=== PATIENT | female | born 1995 ===

== ENCOUNTER 2017-05-29 16:14 | Inpatient (IN) | payer OTHER ==
[2017-05-29 16:30] VITALS: BMI 33.5
[2017-05-29] MEDS ORDERED: Sodium Chloride 0.9% 1,000 ML IV ONE (18:31)
[2017-05-29] MEDS ORDERED: Sodium Chloride 0.9% 1,000 ML ONE (18:42)
[2017-05-29 18:55] LABS: BASO % 0.1 % (0.0-2.0); EOS # 0.1 K/uL (0.0-0.7); EOS % 0.5 % (0.0-4.0); HEMATOCRIT 43.6 % (34.0-47.0); LYMPH # 2.5 K/uL (1.0-4.3); LYMPH % 14.7 % (20.0-40.0); MEAN CELL VOLUME 87.2 fL (81.0-99.0); MEAN CORPUSCULAR HEMOGLOBIN 29.7 pg (27.0-31.0); MEAN PLATELET VOLUME 9.2 fL (7.2-11.7); MONO # 1.1 K/uL (0.0-0.8); MONO % 6.4 % (0.0-10.0); RED CELL DISTRIBUTION WIDTH 13.2 % (11.5-14.5); WHITE BLOOD COUNT 17.1 K/uL (4.8-10.8)
[2017-05-29 19:01] LABS: RBC URINE 22 /hpf (0-3); URINE BACTERIA RARE (<OCC); URINE BILIRUBIN NEGATIVE (NEGATIVE); URINE BLOOD 2+ (NEGATIVE); URINE COLOR Yellow (YELLOW); URINE GLUCOSE (UA) NORMAL (Normal); URINE KETONE NEGATIVE (NEGATIVE); URINE LEUKOCYTE ESTERASE NEG Leu/uL (Negative); URINE PROTEIN NEGATIVE (NEGATIVE); URINE UROBILINOGEN NORMAL mg/dL (0.2-1.0); WBC URINE 1 /hpf (0-5)
[2017-05-29 19:03] LABS: CHLORIDE 98 mmol/L (98-107)
[2017-05-29 19:04] LABS: POTASSIUM 3.9 mmol/L (3.6-5.2); SODIUM 140 mmol/L (132-148)
[2017-05-29 19:06] LABS: AST/SGOT 21 U/L (14-36); BILIRUBIN,TOTAL 0.9 mg/dL (0.2-1.3); CARBON DIOXIDE 27 mmol/L (22-30); GFR AFRICAN-AMERICAN > 60
[2017-05-29 19:07] LABS: ALB/GLOB RATIO 1.4 (1.0-2.1); ALKALINE PHOSPHATASE 77 U/L (38-126); ALT/SGPT 27 U/L (9-52); BLOOD UREA NITROGEN 14 mg/dL (7-17); CALCIUM 9.3 mg/dl (8.6-10.4); GLUCOSE,RANDOM 82 mg/dL (65-105); TOTAL PROTEIN 7.6 g/dL (6.3-8.3)
[2017-05-29] MEDS ORDERED: Iohexol 300 100 ML IJ ONE (20:05)
--- NOTE | 2017-05-29 20:13 | C.PDOC ---
History Of Present Illness 21 year old female presents to the emergency department with complaints right lower quadrant pain for one day. Patient states she has three bowel movements today and denies vaginal discharge, hematuria, or a history of renal colic. Time Seen by Provider: 05/29/17 18:08 Chief Complaint (Nursing): Abdominal Pain History Per: Patient History/Exam Limitations: no limitations Onset/Duration Of Symptoms: Days (1 day ) Current Symptoms Are (Timing): Still Present Radiation Of Pain To:: None Quality Of Discomfort: "Pain" Associated Symptoms: denies: Fever, Chills, Nausea, Vomiting, Diarrhea Last Bowel Movement: Today Recent travel outside of the [place]: No Abnormal Vaginal Bleeding: No Past Medical History Reviewed: Historical Data, Nursing Documentation, Vital Signs Vital Signs: Last Vital Signs Temp 98.3 F 05/29/17 21:59 Pulse 79 05/29/17 21:59 Resp 18 05/29/17 21:59 BP 119/77 05/29/17 21:59 Pulse Ox 99 05/29/17 22:02 Family History: States: Unknown Family Hx - Social History Hx Alcohol Use: No Hx Substance Use: No - Immunization History Hx Tetanus Toxoid Vaccination: No Hx Influenza Vaccination: No Hx Pneumococcal Vaccination: No Review Of Systems Constitutional: Negative for: Fever, Chills Cardiovascular: Negative for: Chest Pain Respiratory: Negative for: Shortness of Breath Gastrointestinal: Positive for: Abdominal Pain (right lower quadrant pain ). Negative for: Nausea, Vomiting, Diarrhea Genitourinary: Negative for: Vaginal Discharge, Vaginal Bleeding Physical Exam - Physical Exam Appears: Non-toxic, No Acute Distress Skin: Warm, Dry Head: Atraumatic Eye(s): bilateral: Normal Inspection, PERRL, EOMI Oral Mucosa: Moist Neck: Supple Chest: Symmetrical, No Deformity Cardiovascular: Rhythm Regular Respiratory: Normal Breath Sounds, No Rhonchi, No Wheezing Gastrointestinal/Abdominal: Soft, Tenderness (mild right abdominal tenderness ) , No Distention, No Guarding, No Rebound Extremity: Normal ROM, No Tenderness Neurological/Psych: Oriented x3 ED Course And Treatment - Laboratory Results Result Diagrams: 05/29/17 18:44 05/29/17 18:44 Lab Interpretation: Normal (few RBC's in urine) Urine POC: Negative O2 Sat by Pulse Oximetry: 99 (room air ) - CT Scan/US CT abd/pel Other Rad Studies (CT/US): Read By Radiologist, Radiology Report Reviewed CT/US Interpretation: IMPRESSION: - Findings suspicious for early acute appendicitis. There is no significant periappendiceal. inflammation, however. If the clinical presentation is equivocal, consider a short term followup. CT scan, in 6-12 hours, to reassess the appendix. - See above for remaining findings Reevaluation Time: 22:01 Reassessment Condition: Improved - Physician Consult Information Outcome Of Conversation: 2200: d/w Dr. 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 Disposition Doctor Will See Patient In The: Hospital Counseled Patient/Family Regarding: Studies Performed, Diagnosis - Disposition Disposition: HOSPITALIZED Disposition Time: 22:01 Condition: GOOD Forms: [facility] (Kittitian) - Clinical Impression Clinical Impression: Acute appendicitis - Scribe Statement The provider has reviewed the documentation as recorded by the Scribe Tracie Mckinley All medical record entries made by the Franibshannan were at my direction and personally dictated by me. I have reviewed the chart and agree that the record accurately reflects my personal performance of the history, physical exam, medical decision making, and the department course for this patient. I have also personally directed, reviewed, and agree with the discharge instructions and disposition.
--- NOTE | 2017-05-29 21:40 | CT ---
EXAM: CT Abdomen and Pelvis With Intravenous Contrast CLINICAL HISTORY: 21 years old, female; Pain; Abdominal pain; Flank; Right lower quadrant (rlq); Additional info: Rlq, ? ap TECHNIQUE: Axial computed tomography images of the abdomen and pelvis with intravenous contrast. This CT exam was performed using one or more of the following dose reduction techniques: automated exposure control, adjustment of the mA and/or kV according to patient size, and/or use of iterative reconstruction technique. Coronal and sagittal reformatted images were created and reviewed. CONTRAST: 100 mL of omnipaque 300 administered intravenously. EXAM DATE/TIME: 05/29/2017 7:15 PM COMPARISON: No relevant prior studies available. FINDINGS: LOWER THORAX: No infiltrate seen in the lung bases. ABDOMEN: LIVER: No acute abnormality of the liver identified. GALLBLADDER AND BILE DUCTS: No CT evidence of acute cholecystitis. No evidence of significant biliary ductal dilatation. PANCREAS: No CT evidence of acute pancreatitis. SPLEEN: No acute abnormality of the spleen identified. ADRENALS: No acute abnormality of the adrenal glands identified. KIDNEYS AND URETERS: No acute abnormality of the kidneys identified. No evidence of significant hydrouereteronephrosis. STOMACH AND BOWEL: No acute abnormality of the stomach, small bowel or colon identified. No evidence of bowel obstruction. APPENDIX: Appendix is seen, in a somewhat high location, in the right upper pelvis, extending inferiorly and medially from the cecum. It is fluid-filled. Its wall enhances. The proximal appendix is dilated, measuring up to 1 cm in diameter (normal less than 6 mm). There are no significant inflammatory changes in the periappendiceal fat. Findings are suspicious for early acute appendicitis. No nearby extraluminal air seen to suggest perforated appendicitis. No evidence of a significant focal fluid collection or abscess. PELVIS: BLADDER: No acute abnormality of the bladder identified. REPRODUCTIVE:No acute abnormality of the reproductive organs is seen. No acute abnormality of the uterus identified. No evidence of large adnexal masses. ABDOMEN and PELVIS: INTRAPERITONEAL SPACE: Tiny amount of free fluid in the cul-de-sac. No evidence of free air. BONES/JOINTS: No acute fractures or other acute bony abnormality noted. SOFT TISSUES: No acute abnormality of the visualized soft tissues is seen. VASCULATURE: No evidence of abdominal aortic aneurysm. No evidence of periaortic hemorrhage. LYMPH NODES: No evidence of diffuse lymphadenopathy. IMPRESSION: - Findings suspicious for early acute appendicitis. There is no significant periappendiceal inflammation, however. If the clinical presentation is equivocal, consider a short term followup CT scan, in 6-12 hours, to reassess the appendix. - See above for remaining findings.
[2017-05-29] MEDS ORDERED: Piperacillin/Tazobact 3.375 gm 100 ML IVPB STA (21:58)
[2017-05-29] MEDS ORDERED: Piperacillin/Tazobact 3.375 gm 100 ML IVPB ONE (22:11)
--- NOTE | 2017-05-29 22:57 | CP.PCM.PCO ---
Physician Communication Note - Physician Communication Note Physician Communication Note: NPO please for surgery at noon on Sat.
[2017-05-29] MEDS ORDERED: HYDROmorphone 0.5 mg/0.5 ml ISec IVP PRN (23:01)
[2017-05-30] MEDS: Sodium Chloride 0.9% 1,000 ML IV SCH ×4 (00:34→23:00)
[2017-05-30] MEDS: Piperacill/Tazo 3.375gm in Dex 3.375 GM/50 ML BAG IVPB SCH ×4 (06:27→22:11)
--- NOTE | 2017-05-30 07:16 | CP.PCM.HP ---
<Fidelina Segundo - Last Filed: 05/30/17 07:16> History of Present Illness - History of Present Illness History of Present Illness: Surgery for Dr. Mccall 21 yo female w who recently had 6 month ago came with RLQ side abd pain started yesterday. Pain is sudden gradually worsen. Pain is located RLQ doesn't radiate to back. Report nausea, vomiting x3 non bloody non bilious emedis, loss of appetite. No sick contact. Otherwise, denies fever, chills, recent illness, cough, CP, SOB, dyspnea, hematemesis, melena, back pain, dysuria ,hematuria, hematemesis, hematochezia. WBC is 17. CT shows early appendicitis , with dilated fluid filled appendix 1cm . Pt is going to OR. explained and pt understood. Signed consent. PSH: 6 month ago PMH: None Present on Admission - Present on Admission Any Indicators Present on Admission: No Review of Systems - Review of Systems Review of Systems: See HPI Past Patient History - Past Medical History & Family History Past Medical History?: No - Past Social History Smoking Status: Never Smoked - MUSCULOSKELETAL/RHEUMATOLOGICAL Hx Falls: No - PSYCHIATRIC Hx Substance Use: No - SURGICAL HISTORY Hx Section: Yes (x1) - ANESTHESIA Hx Anesthesia: Yes Meds Allergies/Adverse Reactions: Allergies Allergy/AdvReac Type Severity Reaction Status Date / Time No Known Allergies Allergy Verified 05/29/17 16:29 Physical Exam - Constitutional Appears: No Acute Distress - Head Exam Head Exam: ATRAUMATIC, NORMAL INSPECTION, NORMOCEPHALIC - Eye Exam Eye Exam: EOMI, Normal appearance, PERRL Pupil Exam: NORMAL ACCOMODATION, PERRL - ENT Exam ENT Exam: Mucous Membranes Moist, Normal Exam - Neck Exam Neck exam: Positive for: Normal Inspection - Respiratory Exam Respiratory Exam: Clear to Auscultation Bilateral, NORMAL BREATHING PATTERN - Cardiovascular Exam Cardiovascular Exam: REGULAR RHYTHM - GI/Abdominal Exam GI & Abdominal Exam: Normal Bowel Sounds, Soft, Tenderness. absent: Distended, Firm, Guarding Additional comments: RLQ TTP - Exam Exam: NORMAL INSPECTION - Extremities Exam Extremities exam: Positive for: normal inspection - Back Exam Back exam: NORMAL INSPECTION - Neurological Exam Neurological exam: Alert, CN II-XII Intact, Normal Gait, Oriented x3, Reflexes Normal - Psychiatric Exam Psychiatric exam: Normal Affect, Normal Mood - Skin Skin Exam: Dry, Intact, Normal Color, Warm Results - Vital Signs Recent Vital Signs: Last Vital Signs Temp 98.3 F 05/29/17 23:07 Pulse 71 05/29/17 23:07 Resp 20 05/29/17 23:07 BP 101/63 05/29/17 23:07 Pulse Ox 97 05/29/17 23:07 - Labs Result Diagrams: 05/29/17 18:44 05/29/17 18:44 Assessment & Plan - Assessment and Plan (Free Text) Assessment: Acute appendicitis wbc 17k Afebrile CT : early appendicitis . dilated appendix 1cm. -OR today -NPO -IVF -Nausea control -VS -ABX DW Dr. Mccall <Carlos Mccall - Last Filed: 05/30/17 22:12> Results - Vital Signs Recent Vital Signs: Last Vital Signs Temp 97.9 F 05/30/17 18:56 Pulse 82 05/30/17 18:56 Resp 20 05/30/17 18:56 BP 102/65 05/30/17 18:56 Pulse Ox 95 05/30/17 18:56 - Labs Result Diagrams: 05/30/17 10:56 05/29/17 18:44 Labs: Laboratory Results - last 24 hr 05/30/17 05/30/17 05/30/17 07:53 10:56 10:56 WBC 9.1 RBC 4.48 Hgb 13.3 Hct 39.4 MCV 87.9 MCH 29.6 MCHC 33.7 RDW 13.1 Plt Count 170 MPV 9.2 PT 13.6 H INR 1.2 APTT 30 Urine HCG, Qual Negative Attending/Attestation - Attestation I have personally seen and examined this patient.: Yes I have fully participated in the care of the patient.: Yes I have reviewed all pertinent clinical information: Yes Notes (Text): 05/30/17 22:12 Pt was seen and examined at bedside on 05/30/17 Agree with above note and assessment Pt with Acute Appendicitis OR for Lap Appendectomy possible Open Consent NPO, IVF C.w IV antibiotics Plan d.w pt in detail Risk and benefit explained in detail
[2017-05-30] MEDS ORDERED: Lidocaine 1% w Epi 1:100,000 Inj ONE (10:06)
[2017-05-30] MEDS ORDERED: Bupivacaine HCl 0.25% PF (10 ml) Inj ONE ×2 (10:06→15:09)
--- NOTE | 2017-05-30 10:25 | RAD ---
PROCEDURE: Radiographs of the chest and abdomen (obstructive series) HISTORY: Abdominal pain COMPARISON: No prior. TECHNIQUE: AP radiograph of the chest, with upright and supine radiographs of the abdomen. FINDINGS: CHEST: Lungs: Clear. Cardiovascular: Normal size heart. No pulmonary vascular congestion. Pleura: No pleural fluid. No pneumothorax. Other findings: None. ABDOMEN AND PELVIS: Bowel: The bowel gas pattern is nonspecific. No evidence of mechanical obstruction. Free air: None. Bones: Unremarkable. Other findings: None. IMPRESSION: Clear lungs. Nonobstructive bowel-gas pattern.
[2017-05-30 11:01] LABS: HEMATOCRIT 39.4 % (34.0-47.0); MEAN CELL VOLUME 87.9 fL (81.0-99.0); MEAN CORPUSCULAR HEMOGLOBIN 29.6 pg (27.0-31.0); MEAN CORPUSCULAR HGB CONC 33.7 g/dL (33.0-37.0); MEAN PLATELET VOLUME 9.2 fL (7.2-11.7); RED CELL DISTRIBUTION WIDTH 13.1 % (11.5-14.5); WHITE BLOOD COUNT 9.1 K/uL (4.8-10.8)
[2017-05-30 11:11] LABS: INR 1.2
[2017-05-30] MEDS ORDERED: Lactated Ringer's 1,000 ML IV ONE ×3 (14:52→16:30)
[2017-05-30] MEDS ORDERED: Propofol 10 mg/ml Inj (20 ML) ONE (15:06)
[2017-05-30] MEDS ORDERED: Midazolam 2 MG/2 ML VIAL ONE (15:06)
[2017-05-30] MEDS ORDERED: Succinylcholine Chloride 20 mg/ml Syr (5 ml) IV ONE (15:07)
[2017-05-30] MEDS ORDERED: Rocuronium 10 mg/ml (5 ml) ONE (15:07)
[2017-05-30] MEDS ORDERED: Neostigmine Methylsulfate 3mg/3ml Syringe IV ONE (16:08)
--- NOTE | 2017-05-30 16:32 | PCM.SURG1 ---
Surgeon's Initial Post Op Note - Surgeon's Notes Surgeon: Dr. Mccall Recycler: Dr. Harding PGY-3 Type of Anesthesia: General Endo, Local Anesthesia Administered By: Dr. Ribeiro Pre-Operative Diagnosis: Acute appendicitis Operative Findings: Acute appendicitis and pelvic abscess Post-Operative Diagnosis: Acute appendicitis and pelvic abscess Operation Performed: Laparoscopic appendectomy and drainage of pelvic abscess Specimen/Specimens Removed: appendix Estimated Blood Loss: EBL {In ML}: 10 Blood Products Given: N/A Drains Used: No Drains Post-Op Condition: Fair Date of Surgery/Procedure: 05/30/17 Time of Surgery/Procedure: 16:32
[2017-05-30] MEDS: HYDROmorphone 0.5 mg/0.5 ml ISec IVP PRN ×2 (16:38→17:01)
[2017-05-30] MEDS ORDERED: Sodium Chloride 0.9% 1,000 ML IV ONE (18:00)
[2017-05-30 18:59] VITALS: RESP 20
[2017-05-31] MEDS: Oxycodone/Acetaminophen 5/325 mg Tab PO PRN ×4 (00:32→16:10)
--- NOTE | 2017-05-31 03:28 | OP ---
PROCEDURE DATE: 05/30/2017 PREOPERATIVE DIAGNOSIS: Acute appendicitis and leukocytosis. POSTOPERATIVE DIAGNOSES: 1. Acute appendicitis and leukocytosis. 2. Pelvic abscess. PROCEDURE DONE: 1. Laparoscopic appendectomy. 2. Laparoscopic drainage of pelvic abscess. SURGEON: Dr. Mccall. MEDICAL EQUIPMENT REPAIR TECHNICIAN: Meaghan Murillo, PGY-3 resident. TYPE OF ANESTHESIA: General endotracheal tube anesthesia. INTRAOPERATIVE FINDINGS: The patient had large pelvic abscess and the patient also had acute suppurative appendicitis. ESTIMATED BLOOD LOSS: Around 10 mL. DRAIN: None. PATHOLOGY: Appendix was sent to the pathology. COMPLICATIONS: None. DESCRIPTION OF PROCEDURE: On intraoperative steps, this is a 21-year-old female, who was diagnosed with acute appendicitis and the patient was consented for the laparoscopic appendectomy, possible open, brought to the OR, placed supine on the operating table. After induction of the anesthesia, abdomen was prepped and draped in the usual sterile fashion. Supraumbilical transverse 1.5 cm incision was made after incising skin and subcutaneous tissue. The fascia was incised and Gita port was placed, pneumo was created. Another 5 mm port was placed in suprapubic region, 12 mm port was placed in the left lower quadrant. Grasper and dissector was introduced and the patient was found to have a large pelvic abscess and first pelvic abscess was suction irrigated, and the appendix was visualized and mesoappendix was resected with a Harmonic scalpel, base of the appendix was resected with a DEEPAK, and the appendix was taken in the Endo Catch bag, taken out through the umbilical port site, and sent off the table for pathology. There was proper hemostasis in each and every part of the procedure. Again suction irrigation of the periappendicular pelvic area as well as perihepatic area was done, and all the fluid was suctioned out and after proper hemostasis all the port was taken out under vision, pneumo was deflated. Umbilical port site was closed in 2 layers, fascia with 0 Vicryl interrupted suture, skin with 4-0 Monocryl and dry sterile dressing was applied. The patient tolerated the procedure well. Count of the instrument was correct. There was no apparent complication. Carlos Mccall MD MTDLacy
[2017-05-31] MEDS: Piperacill/Tazo 3.375gm in Dex 3.375 GM/50 ML BAG IVPB SCH ×2 (06:16→14:39)
[2017-05-31] MEDS: Sodium Chloride 0.9% 1,000 ML IV SCH ×2 (07:59→16:05)
[2017-05-31 08:13] VITALS: O2SAT 99
[2017-05-31 08:14] LABS: HEMATOCRIT 35.5 % (34.0-47.0); MEAN CORPUSCULAR HGB CONC 34.4 g/dL (33.0-37.0); RED CELL DISTRIBUTION WIDTH 13.1 % (11.5-14.5); WHITE BLOOD COUNT 6.8 K/uL (4.8-10.8)
[2017-05-31 08:30] LABS: CHLORIDE 102 mmol/L (98-107); POTASSIUM 3.4 mmol/L (3.6-5.2); SODIUM 139 mmol/L (132-148)
[2017-05-31 08:32] LABS: GFR AFRICAN-AMERICAN > 60
[2017-05-31 08:33] LABS: BLOOD UREA NITROGEN 5 mg/dL (7-17); CALCIUM 7.9 mg/dl (8.6-10.4); CARBON DIOXIDE 25 mmol/L (22-30); GLUCOSE,RANDOM 78 mg/dL (65-105)
[2017-05-31] MEDS ORDERED: Potassium Chloride 20 mEq ER Tab PO STA (09:40)
[2017-05-31 16:55] VITALS: BP 105/67; PULSE 77; TEMP 98.3
[2017-06-01] MEDS ORDERED: Pneumococcal 23-Valent Vaccine IM ONE (10:00)
== END 2017-05-31 18:30 | disposition home or self-care (01) | DRG 883 ==
LOC: C.ER 16:14 → C.9E 21:55 → C.6T 22:31
PROVIDERS: ADMIT Surgery Surgical Critical Care; ATTEND Surgery Surgical Critical Care
PROC: 0W9J4ZZ Drainage of Pelvic Cavity, Percutaneous Endoscopic Approach (ICD-10-PCS; 2017-05-30)
PROC: 0DTJ4ZZ Resection of Appendix, Percutaneous Endoscopic Approach (ICD-10-PCS; principal; 2017-05-30 15:00)
DX: K35.89 Other acute appendicitis (principal); N73.9 Female pelvic inflammatory disease, unspecified